=== PATIENT | female | born 1940 | race Caucasian/White ===

== ENCOUNTER 2018-08-13 07:35 | Emergency (ER) | payer MEDICARE ==
[2018-08-13] MEDS ORDERED: Cyclobenzaprine TAB* 10 MG PO ONE (08:30)
--- NOTE | 2018-08-13 08:34 | ED ---
Back Pain - HPI Summary HPI Summary: Pt presents w/ mid thoracic back pain (about where her bra strap is) radiating to Rt side rib pain x 10 days. Started after planting flower bulbs all day ( bending over, driving meteorological technician into ground then rotating, then bending down to place plant in ground x 20+ plants). No acute injury to report but pain started shortly after planting. Was seen earlier this week at PCP's office -dx' d w/ GEORGINA strain and rx'd 5mg flexeril q 12 hrs. Pt reports his helps pain but wears off before 12 hours. Has not run out of this medication. Woke in the middle of the night with pain so took ES acetaminophen at 3am - no relief. Has tried 400mg ibuprofen at some point earlier in the week w/o much relief but hasn 't tried since. Heat seems to help temporarily. Pain worse w/ waking in the morning after sleeping on back/shoulders - feels stiff. Denies pain in neck, head, arms, chest or other areas of back. Also denies fever, chills, nausea, diaphoresis, SOB, fatigue, dysphagia, ab pain,leg pain/swelling. Has been taking it easy. Doesn't drink enough water. HTN - well controlled on STORM inhibitor CLL - "fine" - follows annually w/ Dr. Lewis - no h/o tx Osteoporosis - no h/o fx - was on medication but stopped > 1 year ago as med was removed form the market - History of Current Complaint Chief Complaint: EDBackInjuryPain Stated Complaint: "CENTER BACK PAIN" PER PT Time Seen by Provider: 08/13/18 07:56 Hx Obtained From: Patient, Family/Cable Television Technician - daughter Pain Intensity: 8 - Allergies/Home Medications Allergies/Adverse Reactions: Allergies Allergy/AdvReac Type Severity Reaction Status Date / Time acetaminophen Allergy Vomiting Verified 08/13/18 07:41 [From Darvocet-N] propoxyphene [From Darvon] Allergy Vomiting Verified 08/13/18 07:41 Home Medications: Home Medications Lisinopril/HCTZ 12/24.5(NF) [Zestoretic 12/24.5(NF)] 1 tab PO DAILY 08/13/18 [ History Confirmed 08/13/18] PMH/Surg Hx/FS Hx/Imm Hx Previously Healthy: Yes Endocrine/Hematology History: Reports: Hx Blood Disorders - CLL Denies: Hx Anticoagulant Therapy Cardiovascular History: Reports: Hx Hypertension - CONTROLLED ON MED Denies: Hx Aneurysm, Hx Congenital Heart Disease, Hx Hypercholesterolemia, Hx Myocardial Infarction, Hx Syncope Musculoskeletal History: Reports: Hx Osteoporosis Denies: Hx Arthritis, Hx Back Problems, Hx of Fracture(s) - Surgical History Surgery Procedure, Year, and Place: RT WRIST; TUBAL LIGATION; HYSTERECTOMY; APPENDECTOMY; Infectious Disease History: No Infectious Disease History: Denies: Traveled Outside the [place] in Last 30 Days - Family History Known Family History: Positive: None - Social History Occupation: Retired Lives: Alone Alcohol Use: Occasionally Hx Substance Use: No Substance Use Type: Reports: None Hx Tobacco Use: Yes - NOT CURRENTLY Smoking Status (MU): Former Smoker Review of Systems Constitutional: Negative Eyes: Negative ENT: Negative Cardiovascular: Negative Respiratory: Negative Gastrointestinal: Negative Positive: no symptoms reported Musculoskeletal: Other - BACK PAIN Skin: Negative Neurological: Negative Psychological: Normal All Other Systems Reviewed And Are Negative: Yes Physical Exam Triage Information Reviewed: Yes Vital Signs On Initial Exam: Initial Vitals Temp Pulse Resp BP Pulse Ox 97.2 F 82 18 150/83 96 08/13/18 07:36 08/13/18 07:36 08/13/18 07:36 08/13/18 07:36 08/13/18 07:36 Vital Signs Reviewed: Yes Appearance: Positive: Well-Appearing, Well-Nourished, Pain Distress - APPEARS MILD BUT REPORTS 10/22 Skin: Positive: Warm, Skin Color Reflects Adequate Perfusion, Dry - No erythema , no ecchymosis, no lesions Head/Face: Positive: Normal Head/Face Inspection Eyes: Positive: Normal, EOMI, Conjunctiva Clear ENT: Positive: Hearing grossly normal, Pharynx normal - mucosa moist Neck: Positive: Supple, Nontender Respiratory/Lung Sounds: Positive: Breath Sounds Present, Other - Rt ribs NTTP Cardiovascular: Positive: Normal, RRR, Pulses are Symmetrical in both Upper and Lower Extremities, Other - no UE edema, S1, S2. Negative: Murmur, Rub, Leg Edema Left, Leg Edema Right Abdomen Description: Positive: Nontender, Soft Bowel Sounds: Positive: Present Musculoskeletal: Positive: Strength/ROM Intact, Pain @ - TTP over mid thoracic region - muscles are NTTP Neurological: Positive: Normal, Sensory/Motor Intact - UE strength equal B/L, Alert, Oriented to Person Place, Time, CN Intact II-III, Reflexes Intact Psychiatric: Positive: Normal - [place] Coma Scale Best Eye Response: 4 - Spontaneous Best Motor Response: 6 - Obeys Commands Best Verbal Response: 5 - Oriented Coma Scale Total: 15 Diagnostics - Vital Signs Vital Signs Temp Pulse Resp BP Pulse Ox 08/13/18 07:36 97.2 F 82 18 150/83 96 - Laboratory Result Diagrams: 08/13/18 08:46 08/13/18 08:46 Lab Statement: Any lab studies that have been ordered have been reviewed, and results considered in the medical decision making process. Re-Evaluation - Re-Evaluation First Eval Change: Unchanged - minimal improvement with 5mg flexeril and heat - added toradol and lidoderm pain patch Back Pain Course/Dx - Course Course Of Treatment: XR: compression fx at T5, T6 (area where pt is describing pain) -stable. Discussed results w/ pt. Further testing was not performed as labs were close to normal for her and hx lines up with compression fx findings. Advised pain control and close f/u w/ information management specialist. Also discussed need to address osteoporosis via diet at least, possibly med but can discuss w/ PCP or information management specialist. Also discussed concern for AAA however risk low given hx and findings. Explained if she feels worse or new danger s/sx present to return to ED. Pt and daughter agree w/ plan. - Diagnoses Provider Diagnoses: Thoracic compression fracture, Osteoporosis Discharge - Sign-Out/Discharge Documenting (check all that apply): Patient Departure Patient Received Moderate/Deep Sedation with Procedure: No - Discharge Plan Condition: Stable Disposition: HOME Prescriptions: Cyclobenzaprine TAB* [Flexeril 10 MG TAB*] 5 mg PO TID PRN #15 tab PRN Reason: Pain Ibuprofen TAB* [Motrin TAB* 600 MG] 600 mg PO Q6H PRN #30 tab PRN Reason: Pain Lidocaine PATCH 5%* [Lidoderm 5% Patch*] 1 patch TRANSDERM DAILY PRN #30 patch PRN Reason: Pain Patient Education Materials: Vertebral Compression Fracture (ED) Referrals: Adriel Mccain MD [Medical Doctor] - Additional Instructions: Rest Avoid lifting, bending, twisting at the waist, carrying heavy objects Take medications as directed - followup with information management specialist this week - call Wednesday to schedule an appointment *If worse, return to ED NOTE: it is also advised that you call Dr. Lewis to update him on your labs and fractures - paperwork will be sent if you sign for consent - Billing Disposition and Condition Condition: STABLE Disposition: Home
[2018-08-13 09:24] LABS: Hematocrit 41 % (35-47); Hemoglobin 13.6 g/dL (12.0-16.0); Mean Corpuscular HGB Conc 33 g/dL (31-36); Mean Corpuscular Hemoglobin 29 pg (27-31); Mean Corpuscular Volume 88 fL (80-97); Mean Platelet Volume 7.8 fL (7.4-10.4); Platelet Count 182 10^3/uL (150-450); Red Blood Count 4.66 10^6 /uL (3.70-4.87); Red Cell Distribution Width 15 % (10.5-15); White Blood Count 25.1 10^3/uL (3.5-10.8)
[2018-08-13 09:29] LABS: Albumin 4.1 g/dL (3.2-5.2); Albumin/Globulin Ratio 1.7 (1-3); BUN/Creatinine Ratio 27.3 (8-20); Calcium 9.4 mg/dL (8.6-10.3); EGFR African American 75.2 (>60); EGFR Non-African American 62.1 (>60); Globulin 2.4 g/dL (2-4); Magnesium 2.1 mg/dL (1.9-2.7); Potassium 4.3 mmol/L (3.5-5.0); Total Bilirubin 0.6 mg/dL (0.2-1.0); Total Protein 6.5 g/dL (6.4-8.9)
[2018-08-13 10:01] LABS: ABS Neutrophils 5.2 10^3/ul (1.5-7.7)
[2018-08-13] MEDS ORDERED: Ketorolac INJ* 30 MG/ML 1 ML VIAL IM ONE (11:07)
[2018-08-13] MEDS ORDERED: Lidocaine PATCH 5%* 1 PATCH TRANSDERM SCH (11:08)
[2018-08-13 11:59] VITALS: BP 139/87
[2018-08-15 14:24] LABS: ABS Basophils 0.1 10^3/ul (0-0.2); ABS Lymphocytes 19.6 10^3/ul (1.0-4.8); ABS Monocytes 0.2 10^3/ul (0-0.8)
[2018-08-15 14:25] LABS: ABS Nucleated RBC 0.2 10^3/ul; Eosinophil % 0.1 %; Lymphocyte % 78.1 %
== END 2018-08-13 12:00 | disposition home or self-care (01) ==
LOC: ED 07:35
DX: S22.050A Wedge compression fracture of T5-T6 vertebra, initial encounter for closed fracture (principal); X58.XXXA Exposure to other specified factors, initial encounter; Y93.H2 Activity, gardening and landscaping; Y92.096 Garden or yard of other non-institutional residence as the place of occurrence of the external cause; M51.34 Other intervertebral disc degeneration, thoracic region; M81.0 Age-related osteoporosis without current pathological fracture; I10 Essential (primary) hypertension; Z85.6 Personal history of leukemia; Z88.6 Allergy status to analgesic agent; Z88.5 Allergy status to narcotic agent; Z87.891 Personal history of nicotine dependence
CPT/HCPCS: 36415; 71045; 72070; 80053; 83735; 85025; 85060; 96372; 99283; A9270-GY; J1885

== ENCOUNTER 2020-09-22 17:39 | Inpatient (IN) ==
[2020-09-22 19:02] LABS: Albumin 4.6 g/dL (3.2-5.2); Albumin/Globulin Ratio 2.3 (1-3); Calcium 9.2 mg/dL (8.6-10.3); EGFR African American 82.3 (>60); Total Bilirubin 5.5 mg/dL (0.2-1.0); Total Protein 6.6 g/dL (6.4-8.9)
[2020-09-22 19:04] LABS: Hematocrit 22 % (35-47); Hemoglobin 6.8 g/dL (12.0-16.0); Mean Corpuscular HGB Conc 31 g/dL (31-36); Mean Corpuscular Hemoglobin 34 pg (27-31); Mean Corpuscular Volume 109 fL (80-97); Platelet Count 268 10^3/uL (150-450); Red Blood Count 2.02 10^6 /uL (3.70-4.87); Red Cell Distribution Width 19 % (10-15); White Blood Count 117.7 10^3/uL (3.5-10.8)
[2020-09-22 19:37] LABS: Potassium 4.7 mmol/L (3.5-5.0)
[2020-09-22 19:52] LABS: RBC Morphology Normal (Normal)
[2020-09-22 19:53] LABS: ABS Basophils 0.4 10^3/ul (0-0.2); ABS Lymphocytes 105.1 10^3/ul (1.0-4.8); ABS Monocytes 1.8 10^3/ul (0-0.8); ABS Neutrophils 10.4 10^3/ul (1.5-7.7); ABS Nucleated RBC 0.5 10^3/ul; Lymphocyte % 89.3 %; Nucleated Red Blood Cells % 0.5
[2020-09-22 21:45] LABS: Direct Bilirubin 0.3 mg/dL (0.03-0.18)
[2020-09-22] MEDS ORDERED: Enoxaparin 40 MG/0.4 ML SYR SUBCUT SCH (22:00)
[2020-09-22] MEDS ORDERED: Iohexol 350 (CONTRAST) 500 ML MDV IV ONE (23:46)
[2020-09-23 02:44] LABS: Hematocrit 20 % (35-47); Hemoglobin 6.4 g/dL (12.0-16.0); Mean Corpuscular HGB Conc 31 g/dL (31-36); Mean Corpuscular Hemoglobin 35 pg (27-31); Mean Corpuscular Volume 110 fL (80-97); Mean Platelet Volume 6.9 fL (7.4-10.4); Platelet Count 240 10^3/uL (150-450); Red Blood Count 1.84 10^6 /uL (3.70-4.87); Red Cell Distribution Width 19 % (10-15); White Blood Count 101.1 10^3/uL (3.5-10.8)
[2020-09-23 02:48] LABS: EGFR African American 88.6 (>60); EGFR Non-African American 73.2 (>60)
[2020-09-23] MEDS: Heparin 5000 UNITS/ML 1 mL VIAL IV SCH (02:55)
[2020-09-23 03:01] LABS: Anisocytosis 2+; Macrocytosis 1+
[2020-09-23 03:02] LABS: ABS Basophils 0.1 10^3/ul (0-0.2); ABS Eosinophils 0.1 10^3/ul (0-0.6); ABS Lymphocytes 89.6 10^3/ul (1.0-4.8); ABS Monocytes 1.7 10^3/ul (0-0.8); ABS Neutrophils 9.5 10^3/ul (1.5-7.7); ABS Nucleated RBC 0.7 10^3/ul; Eosinophil % 0.1 %; Lymphocyte % 88.8 %; Nucleated Red Blood Cells % 0.7; Polychromasia 1+
[2020-09-23 03:03] LABS: Smudge Cells Present
[2020-09-23] MEDS: Heparin DRIP 25,000 UNITS BAG 25,000 UNITS/500 ML BAG IV SCH (03:03)
[2020-09-23 05:19] LABS: Ferritin 577.2 ng/mL (11-307)
[2020-09-23 09:24] LABS: Hematocrit for Retic CNT 22 % (35-47); RBC Retic Count 1.99 10^6/uL (3.70-4.87)
[2020-09-23 09:28] LABS: Corrected Retic Count 9.1 % (0.5-1.5); Immature Retic Fraction 0.64
[2020-09-23 09:41] LABS: Fibrinogen 276.9 mg/dL (110.8-404.3)
[2020-09-23 09:50] LABS: Activated Partial Thrombo Time 130.8 seconds (26.0-38.0)
[2020-09-23] MEDS ORDERED: Rasburicase 1.5 MG VIAL(NF) IVPB SCH (11:00)
[2020-09-23] MEDS ORDERED: riTUXimab-ABBS 10 MG/ML 10 ML VIAL IVPB ONE (11:57)
[2020-09-23] MEDS ORDERED: diPHENhydraMINE IV 50 MG/ML 1 ml VIAL (BENADRYL) IV ONE (11:58)
[2020-09-23] MEDS: Cyanocobalamin INJ 1,000 MCG/ML VIAL 1 ML VIAL IM SCH (12:09)
[2020-09-23] MEDS ORDERED: RASBURICASE IVPB ONE (13:00)
[2020-09-23] MEDS ORDERED: NS 0.9% IVPB ONE ×2 (13:00→15:00)
[2020-09-23] MEDS ORDERED: riTUXimab-ABBS 500 MG, riTUXimab-ABBS 200 MG in NS 0.9% 500 ml BAG 280 ML IVPB ONE (15:00)
[2020-09-23] MEDS ORDERED: RITUXIMAB IVPB ONE (15:00)
[2020-09-23 16:14] LABS: Hematocrit 22 % (35-47); Hemoglobin 6.7 g/dL (12.0-16.0)
[2020-09-23 17:18] LABS: ABS Basophils 0.3 10^3/ul (0-0.2); ABS Eosinophils 0.1 10^3/ul (0-0.6); ABS Lymphocytes 120.7 10^3/ul (1.0-4.8); ABS Monocytes 1.6 10^3/ul (0-0.8); ABS Neutrophils 12.9 10^3/ul (1.5-7.7); ABS Nucleated RBC 0.9 10^3/ul; Hematocrit 22 % (35-47); Hemoglobin 6.6 g/dL (12.0-16.0); Lymphocyte % 89.1 %; Mean Corpuscular HGB Conc 30 g/dL (31-36); Mean Corpuscular Hemoglobin 34 pg (27-31); Mean Corpuscular Volume 114 fL (80-97); Mean Platelet Volume 7.1 fL (7.4-10.4); Nucleated Red Blood Cells % 0.7; Platelet Count 284 10^3/uL (150-450); Red Blood Count 1.92 10^6 /uL (3.70-4.87); Red Cell Distribution Width 20 % (10-15); White Blood Count 135.5 10^3/uL (3.5-10.8)
[2020-09-24] MEDS: Heparin DRIP 25,000 UNITS BAG 25,000 UNITS/500 ML BAG IV SCH (02:18)
[2020-09-24 06:40] LABS: Hematocrit 18 % (35-47); Hemoglobin 5.5 g/dL (12.0-16.0); Mean Corpuscular HGB Conc 31 g/dL (31-36); Mean Corpuscular Hemoglobin 35 pg (27-31); Mean Corpuscular Volume 114 fL (80-97); Mean Platelet Volume 7.2 fL (7.4-10.4); Platelet Count 254 10^3/uL (150-450); Red Blood Count 1.57 10^6 /uL (3.70-4.87); Red Cell Distribution Width 19 % (10-15); White Blood Count 121.1 10^3/uL (3.5-10.8)
[2020-09-24] MEDS: Heparin 5000 UNITS/ML 1 mL VIAL IV SCH (07:20)
[2020-09-24] MEDS: Cyanocobalamin INJ 1,000 MCG/ML VIAL 1 ML VIAL IM SCH (08:37)
[2020-09-24] MEDS ORDERED: diPHENhydraMINE IV 50 MG/ML 1 ml VIAL (BENADRYL) SLOW PUSH ONE (09:00)
[2020-09-24] MEDS ORDERED: Famotidine IV 10 MG/ML 2 ml VIAL (20 mg) IV SLOW PU PRN (09:24)
[2020-09-24] MEDS ORDERED: methylPREDNISolone 125 mg 2 ML VIAL IV PRN (09:24)
[2020-09-24] MEDS ORDERED: diPHENhydraMINE IV 50 MG/ML 1 ml VIAL (BENADRYL) IV PRN (09:24)
[2020-09-24] MEDS ORDERED: riTUXimab-ABBS 500 MG, riTUXimab-ABBS 200 MG in NS 0.9% 500 ml BAG 280 ML IVPB ONE (09:30)
[2020-09-24 11:22] LABS: Polychromasia 3+; Spherocytes 3+
[2020-09-24 11:23] LABS: ABS Basophils 0.3 10^3/ul (0-0.2); ABS Lymphocytes 104.3 10^3/ul (1.0-4.8); ABS Monocytes 2.6 10^3/ul (0-0.8); ABS Neutrophils 13.9 10^3/ul (1.5-7.7); ABS Nucleated RBC 0.5 10^3/ul; Lymphocyte % 86.2 %; Nucleated Red Blood Cells % 0.4
[2020-09-24 11:24] LABS: Smudge Cells 3+
[2020-09-24] MEDS ORDERED: RASBURICASE IVPB SCH (13:00)
[2020-09-24] MEDS ORDERED: NS 0.9% IVPB SCH (13:00)
[2020-09-24] MEDS ORDERED: diPHENhydraMINE IV 50 MG/ML 1 ml VIAL (BENADRYL) IV ONE (13:02)
[2020-09-24 20:06] LABS: Hematocrit 21 % (35-47); Hemoglobin 6.7 g/dL (12.0-16.0); Mean Corpuscular HGB Conc 32 g/dL (31-36); Mean Corpuscular Hemoglobin 34 pg (27-31); Mean Corpuscular Volume 106 fL (80-97); Platelet Count 243 10^3/uL (150-450); Red Blood Count 1.99 10^6 /uL (3.70-4.87); Red Cell Distribution Width 21 % (10-15); White Blood Count 77.2 10^3/uL (3.5-10.8)
[2020-09-24] MEDS: NS 0.9% IVPB SCH (22:05)
[2020-09-24] MEDS: RASBURICASE IVPB SCH (22:05)
[2020-09-25] MEDS: Heparin DRIP 25,000 UNITS BAG 25,000 UNITS/500 ML BAG IV SCH (04:52)
[2020-09-25 07:21] LABS: Hematocrit 20 % (35-47); Hemoglobin 6.4 g/dL (12.0-16.0); Mean Corpuscular HGB Conc 32 g/dL (31-36); Mean Corpuscular Hemoglobin 35 pg (27-31); Mean Corpuscular Volume 107 fL (80-97); Mean Platelet Volume 7.2 fL (7.4-10.4); Platelet Count 216 10^3/uL (150-450); Red Blood Count 1.83 10^6 /uL (3.70-4.87); Red Cell Distribution Width 21 % (10-15); White Blood Count 58.7 10^3/uL (3.5-10.8)
[2020-09-25 07:23] LABS: Albumin 3.7 g/dL (3.2-5.2); Albumin/Globulin Ratio 2.3 (1-3); Calcium 8.5 mg/dL (8.6-10.3); EGFR African American 75.8 (>60); EGFR Non-African American 62.6 (>60); Globulin 1.6 g/dL (2-4); Magnesium 2.1 mg/dL (1.9-2.7); Total Bilirubin 4.3 mg/dL (0.2-1.0); Total Protein 5.3 g/dL (6.4-8.9)
[2020-09-25 08:46] LABS: Anisocytosis 1+; Polychromasia 2+
[2020-09-25 08:47] LABS: ABS Basophils 0.1 10^3/ul (0-0.2); ABS Lymphocytes 44.9 10^3/ul (1.0-4.8); ABS Monocytes 0.8 10^3/ul (0-0.8); ABS Neutrophils 12.9 10^3/ul (1.5-7.7); ABS Nucleated RBC 0.3 10^3/ul; Lymphocyte % 76.6 %; Nucleated Red Blood Cells % 0.5
[2020-09-25] MEDS: Cyanocobalamin INJ 1,000 MCG/ML VIAL 1 ML VIAL IM SCH (09:51)
[2020-09-25] MEDS: NS 0.9% IVPB SCH (20:42)
[2020-09-25] MEDS: RASBURICASE IVPB SCH (20:42)
[2020-09-26] MEDS: Heparin DRIP 25,000 UNITS BAG 25,000 UNITS/500 ML BAG IV SCH (04:29)
[2020-09-26 05:30] LABS: ABS Lymphocytes 32.4 10^3/ul (1.0-4.8); ABS Monocytes 0.5 10^3/ul (0-0.8); ABS Neutrophils 10.7 10^3/ul (1.5-7.7); ABS Nucleated RBC 0.2 10^3/ul; Eosinophil % 0.1 %; Hematocrit 22 % (35-47); Hemoglobin 7.3 g/dL (12.0-16.0); Lymphocyte % 74.2 %; Mean Corpuscular HGB Conc 33 g/dL (31-36); Mean Corpuscular Hemoglobin 34 pg (27-31); Mean Corpuscular Volume 102 fL (80-97); Mean Platelet Volume 7.2 fL (7.4-10.4); Nucleated Red Blood Cells % 0.4; Platelet Count 198 10^3/uL (150-450); Red Blood Count 2.13 10^6 /uL (3.70-4.87); Red Cell Distribution Width 27 % (10-15); White Blood Count 43.6 10^3/uL (3.5-10.8)
[2020-09-26 05:36] LABS: Calcium 8.3 mg/dL (8.6-10.3); EGFR African American 94.3 (>60); EGFR Non-African American 77.9 (>60); Magnesium 2.1 mg/dL (1.9-2.7); Potassium 3.8 mmol/L (3.5-5.0)
[2020-09-26 06:16] LABS: Anisocytosis 2+; Microcytosis 1+; Polychromasia 1+
[2020-09-26] MEDS: Magic MouthWash2-BEN/MAAL/LIDO/NYST 240 ML BTL (alt formulation) SWISH SPIT SCH ×4 (09:32→20:33)
[2020-09-26] MEDS: Cyanocobalamin INJ 1,000 MCG/ML VIAL 1 ML VIAL IM SCH (09:33)
[2020-09-26] MEDS ORDERED: Sulfamethox/Trimethoprim DS TAB 800/160 mg PO SCH (11:00)
[2020-09-27] MEDS ORDERED: Sulfamethox/Trimethoprim DS TAB 800/160 mg PO SCH (09:00)
[2020-09-27] MEDS: Cyanocobalamin INJ 1,000 MCG/ML VIAL 1 ML VIAL IM SCH (09:31)
[2020-09-27] MEDS: Magic MouthWash2-BEN/MAAL/LIDO/NYST 240 ML BTL (alt formulation) SWISH SPIT SCH (09:32)
[2020-09-27 10:55] LABS: Potassium 3.8 mmol/L (3.5-5.0); Total Bilirubin 3.5 mg/dL (0.2-1.0)
[2020-09-27 10:59] LABS: ABS Basophils 0.1 10^3/ul (0-0.2); ABS Eosinophils 0.1 10^3/ul (0-0.6); ABS Lymphocytes 27.9 10^3/ul (1.0-4.8); ABS Monocytes 0.5 10^3/ul (0-0.8); ABS Neutrophils 10.2 10^3/ul (1.5-7.7); ABS Nucleated RBC 0.2 10^3/ul; Eosinophil % 0.2 %; Hematocrit 26 % (35-47); Hemoglobin 8.2 g/dL (12.0-16.0); Lymphocyte % 71.9 %; Mean Corpuscular HGB Conc 32 g/dL (31-36); Mean Corpuscular Hemoglobin 34 pg (27-31); Mean Corpuscular Volume 107 fL (80-97); Mean Platelet Volume 7.3 fL (7.4-10.4); Nucleated Red Blood Cells % 0.5; Platelet Count 205 10^3/uL (150-450); Red Cell Distribution Width 29 % (10-15); White Blood Count 38.7 10^3/uL (3.5-10.8)
[2020-09-27 11:01] LABS: Albumin/Globulin Ratio 2.7 (1-3); EGFR Non-African American 66.1 (>60); Globulin 1.5 g/dL (2-4); Total Protein 5.5 g/dL (6.4-8.9)
[2020-09-27 11:50] LABS: Anisocytosis 1+; Polychromasia 2+; Spherocytes 1+
[2020-09-27 14:38] VITALS: BP 124/65
== END 2020-09-27 15:30 | disposition home or self-care (01) | DRG 808 ==
LOC: ED 17:39 → MED 22:07
PROVIDERS: ADMIT Internal Medicine; ATTEND Hospitalist

== ENCOUNTER 2022-04-26 07:34 | Inpatient (IN) ==
[2022-04-26] MEDS ORDERED: Ondansetron 4 mg VIAL 2 MG/ML 2 ml VIAL IV ONE (08:38)
[2022-04-26] MEDS ORDERED: Lactated Ringers 1000 ml BAG 1,000 ML IV ONE ×2 (09:05→16:00)
[2022-04-26 09:17] LABS: ABS Lymphocytes 2.3 10^3/ul (1.0-4.8); ABS Monocytes 0.4 10^3/ul (0-0.8); ABS Neutrophils 7.2 10^3/ul (1.5-7.7); Eosinophil % 0.1 %; Hematocrit 40 % (35-47); Hemoglobin 13.4 g/dL (12.0-16.0); Lymphocyte % 23.3 %; Mean Corpuscular HGB Conc 33 g/dL (31-36); Mean Corpuscular Hemoglobin 28 pg (27-31); Mean Corpuscular Volume 85 fL (80-97); Mean Platelet Volume 10.1 fL (7.4-10.4); Nucleated Red Blood Cells % 0.1; Platelet Count 142 10^3/uL (150-450); Red Blood Count 4.72 10^6 /uL (3.70-4.87); Red Cell Distribution Width 14 % (10-15)
[2022-04-26 09:58] LABS: Albumin 4.1 g/dL (3.2-5.2); Albumin/Globulin Ratio 2.2 (1-3); Calcium 8.7 mg/dL (8.6-10.3); Creatinine, Serum 0.95 mg/dL (0.51-0.95); Globulin 1.9 g/dL (2-4); Potassium 3.8 mmol/L (3.5-5.0); Total Bilirubin 1.3 mg/dL (0.2-1.0); eGFR CKD-EPI 59.8 (>60)
[2022-04-26] MEDS ORDERED: Iodixanol (CONTRAST) 320 MG/ML 100 ML SDV IV ONE (10:12)
[2022-04-26 10:33] LABS: High Sensitivity Troponin 1 Hr 18 pg/mL (<15)
[2022-04-26] MEDS ORDERED: cefTRIAXone 1 gm/50 mL D5W 1 GM/50 ML BAG IV ONE (11:45)
[2022-04-26] MEDS ORDERED: Azithromycin 500 mg/250 ml NS 500 MG/250 ML BAG IVPB ONE (11:45)
[2022-04-26 12:50] LABS: C Reactive Protein 85.53 mg/L (<8.01)
[2022-04-26] MEDS ORDERED: IBRUTINIB 420 MG PO SCH (15:00)
[2022-04-27 06:42] LABS: ABS Lymphocytes 2.2 10^3/ul (1.0-4.8); ABS Monocytes 0.6 10^3/ul (0-0.8); ABS Neutrophils 5.5 10^3/ul (1.5-7.7); Eosinophil % 0.3 %; Hematocrit 38 % (35-47); Hemoglobin 12.6 g/dL (12.0-16.0); Lymphocyte % 26.2 %; Mean Corpuscular HGB Conc 34 g/dL (31-36); Mean Corpuscular Hemoglobin 29 pg (27-31); Mean Corpuscular Volume 86 fL (80-97); Platelet Count 120 10^3/uL (150-450); Red Blood Count 4.38 10^6 /uL (3.70-4.87); Red Cell Distribution Width 14 % (10-15); White Blood Count 8.3 10^3/uL (3.5-10.8)
[2022-04-27 07:03] LABS: Creatinine, Serum 0.78 mg/dL (0.51-0.95); Potassium 3.5 mmol/L (3.5-5.0); eGFR CKD-EPI 75.8 (>60)
[2022-04-27] MEDS: cefTRIAXone 1 gm/50 mL D5W 1 GM/50 ML BAG IV SCH (11:34)
[2022-04-27] MEDS: Azithromycin 500 mg/250 ml NS 500 MG/250 ML BAG IVPB SCH (12:30)
[2022-04-27] MEDS ORDERED: Metoprolol Tartrate 5 mg VIAL 5 ml VIAL (1 mg/ml) IV PRN (19:48)
[2022-04-27] MEDS ORDERED: Furosemide 20 mg/2 ml IV VIAL IV SLOW PU ONE (20:00)
[2022-04-27 21:41] LABS: High Sensitivity Troponin 1 Hr 31 pg/mL (<15)
[2022-04-27] MEDS ORDERED: Potassium Chlor 20 meq TAB.ER PO ONE (22:42)
[2022-04-28 01:10] LABS: Creatinine, Serum 0.87 mg/dL (0.51-0.95); Potassium 3.6 mmol/L (3.5-5.0)
[2022-04-28 01:11] LABS: Calcium 8.1 mg/dL (8.6-10.3); Magnesium 1.9 mg/dL (1.9-2.7); eGFR CKD-EPI 66.5 (>60)
[2022-04-28] MEDS ORDERED: Ondansetron 4 mg VIAL 2 MG/ML 2 ml VIAL IV ONE (01:55)
[2022-04-28] MEDS ORDERED: Ondansetron 4 mg VIAL 2 MG/ML 2 ml VIAL IV PRN (03:27)
[2022-04-28 06:47] LABS: ABS Lymphocytes 2.4 10^3/ul (1.0-4.8); ABS Monocytes 0.5 10^3/ul (0-0.8); ABS Neutrophils 6.4 10^3/ul (1.5-7.7); Eosinophil % 0.1 %; Hematocrit 36 % (35-47); Hemoglobin 12.2 g/dL (12.0-16.0); Lymphocyte % 25.7 %; Mean Corpuscular HGB Conc 34 g/dL (31-36); Mean Corpuscular Hemoglobin 29 pg (27-31); Mean Corpuscular Volume 86 fL (80-97); Platelet Count 124 10^3/uL (150-450); Red Blood Count 4.17 10^6 /uL (3.70-4.87); Red Cell Distribution Width 14 % (10-15); White Blood Count 9.4 10^3/uL (3.5-10.8)
[2022-04-28 07:01] LABS: Calcium 7.9 mg/dL (8.6-10.3); Creatinine, Serum 0.73 mg/dL (0.51-0.95); Magnesium 1.9 mg/dL (1.9-2.7); Potassium 3.9 mmol/L (3.5-5.0); eGFR CKD-EPI 82.1 (>60)
[2022-04-28] MEDS ORDERED: Magnesium Sulfate IV 1GM/100ML 1 GM/100 ML BAG IV ONE ×2 (07:27→09:00)
[2022-04-28] MEDS ORDERED: Potassium Chlor 20 meq TAB.ER PO ONE (07:30)
[2022-04-28] MEDS: cefTRIAXone 1 gm/50 mL D5W 1 GM/50 ML BAG IV SCH (12:15)
[2022-04-28] MEDS: Azithromycin 500 mg/250 ml NS 500 MG/250 ML BAG IVPB SCH (13:00)
[2022-04-28 18:15] LABS: HDL Cholesterol 46.9 mg/dL
[2022-04-28 18:30] LABS: TSH Ultra Thyroid Stim Horm 2.49 mcIU/mL (0.34-5.60)
[2022-04-29 06:25] LABS: ABS Eosinophils 0.1 10^3/ul (0-0.6); ABS Lymphocytes 2.2 10^3/ul (1.0-4.8); ABS Monocytes 0.7 10^3/ul (0-0.8); ABS Neutrophils 6.9 10^3/ul (1.5-7.7); Eosinophil % 0.9 %; Hematocrit 35 % (35-47); Hemoglobin 11.8 g/dL (12.0-16.0); Lymphocyte % 22.1 %; Mean Corpuscular HGB Conc 34 g/dL (31-36); Mean Corpuscular Hemoglobin 29 pg (27-31); Mean Corpuscular Volume 84 fL (80-97); Mean Platelet Volume 9.5 fL (7.4-10.4); Nucleated Red Blood Cells % 0.1; Platelet Count 136 10^3/uL (150-450); Red Blood Count 4.14 10^6 /uL (3.70-4.87); Red Cell Distribution Width 14 % (10-15)
[2022-04-29 06:42] LABS: Calcium 7.9 mg/dL (8.6-10.3); Creatinine, Serum 0.75 mg/dL (0.51-0.95); Potassium 3.5 mmol/L (3.5-5.0); eGFR CKD-EPI 79.4 (>60)
[2022-04-29 12:58] VITALS: BP 138/70
== END 2022-04-29 14:15 | disposition home or self-care (01) | DRG 193 ==
LOC: EDHOLD 07:34 → ED 07:34 → SUATTDRO 13:07 → EDHOLD 19:06 → MED 19:24 → SUATTDRO 04-27 15:45 → MEDTELE 04-27 23:50
PROVIDERS: ADMIT Internal Medicine; ATTEND Internal Medicine